=== PATIENT | female | born 1985 | race Two or more races ===

== ENCOUNTER 2019-03-15 12:48 | Inpatient (IN) | payer OTHER ==
[~2019-03-15] VITALS: Ht 175.3 cm; Wt 3.2 kg
[~2019-03-15 12:48] MED LIST: DIAMOX PO; TOPAMAX PO; TOPROL XL50 M1 PO; Toprol Xl 50MG TAB PO; ULTRACET PO
[2019-03-15] MEDS ORDERED: ZOFRAN8 MG ×2 (14:03→14:04)
[2019-03-15] MEDS ORDERED: ZANTAC25 MG/1 ML (14:03)
[2019-03-15] MEDS ORDERED: PROAIR HFA8.5 GM (14:03)
[2019-03-15] MEDS ORDERED: ZANTAC150 M3 (14:03)
[2019-03-22] MEDS ORDERED: PRENATAL TABLE1 EAC1 (08:29)
== END 2019-03-25 13:25 | DRG 785 ==
LOC: O/R 03-22 06:20 → OB/GYN 03-22 06:20 → SURH 03-22 09:15 → OB/GYN 03-22 11:16 → SURH 03-22 12:09 → OB/GYN 03-25 13:25
PROVIDERS: ADMIT Obstetrics & Gynecology
PROC: 0UB70ZZ Excision of Bilateral Fallopian Tubes, Open Approach (ICD-10-PCS; 2019-03-22)
PROC: 4A033R1 Measurement of Arterial Saturation, Peripheral, Percutaneous Approach (ICD-10-PCS; 2019-03-22)
PROC: 4A1HXCZ Monitoring of Products of Conception, Cardiac Rate, External Approach (ICD-10-PCS; 2019-03-22)
PROC: 10D00Z1 Extraction of Products of Conception, Low, Open Approach (ICD-10-PCS; principal; 2019-03-22 09:15)
DX: O82 Encounter for cesarean delivery without indication (principal); O34.211 Maternal care for low transverse scar from previous cesarean delivery; Z3A.39 39 weeks gestation of pregnancy; Z37.0 Single live birth; Z30.2 Encounter for sterilization